=== PATIENT | male | born 1950 | race Caucasian/White ===

== ENCOUNTER 2020-06-23 11:40 | Emergency (ER) | payer OTHER ==
[2020-06-23] MEDS ORDERED: Acetaminophen/HYDROcodone 325-5 MG Tab PO ONE (12:26)
--- NOTE | 2020-06-23 12:29 | EDM.PDOC ---
ED HPI GENERAL MEDICAL PROBLEM - General Chief Complaint: Back Pain or Injury Stated Complaint: RIB PAIN/PAIN WITH BREATHING Time Seen by Provider: 06/23/20 11:51 Source of Information: Reports: Patient, RN Notes Reviewed - History of Present Illness INITIAL COMMENTS - FREE TEXT/NARRATIVE: 69 yr old male fell on a log with injury to R lateral chest wall 2 days ago. This has been very painful. Hurts to breath, hurts to move. No other pain or other apparent injury. Hard to sleep at night. Has been sleeping sitting up in a chair. ribs Pain Score (Numeric/FACES): 10 - Related Data Allergies Allergy/AdvReac Type Severity Reaction Status Date / Time procaine [From Novocain] Allergy Severe Cannot Verified 06/23/20 11:53 Remember Home Meds: Home Meds Betamethasone/Propylene Glyc [Diprolene 0.05%] 1 applic TOP BID 06/23/20 [History] Cholecalciferol (Vitamin D3) [Vitamin D3] 1 tab PO DAILY 06/23/20 [History] Gabapentin [Neurontin] 200 mg PO BEDTIME 06/23/20 [History] Hydrocodone/Acetaminophen [[place] 5-325 Tablet] 1 each PO Q6HR PRN #20 tablet 06/23/20 [Rx] Triamcinolone Acetonide [Kenalog] 1 applic TOP BID 06/23/20 [History] lisinopriL [Lisinopril] 40 mg PO DAILY 06/23/20 [History] Past Medical History Cardiovascular History: Reports: Hypertension Social & Family History - Tobacco Use Tobacco Use Status *Q: Current Every Day Tobacco User Years of Tobacco use: 40 Packs/Tins Daily: 2 - Caffeine Use Caffeine Use: Reports: None - Recreational Drug Use Recreational Drug Use: No ED ROS GENERAL - Review of Systems Review Of Systems: See Below Constitutional: Reports: No Symptoms HEENT: Reports: No Symptoms Respiratory: Reports: Pleuritic Chest Pain. Denies: Cough Cardiovascular: Reports: Chest Pain GI/Abdominal: Denies: Nausea, Vomiting Musculoskeletal: Denies: Neck Pain, Shoulder Pain, Back Pain Skin: Reports: No Symptoms Neurological: Reports: No Symptoms ED EXAM, NEURO - Physical Exam Exam: See Below General Appearance: Alert, Mild Distress Ears: Normal External Exam Head Exam: Atraumatic Neck: Supple, Non-Tender Respiratory/Chest: No Respiratory Distress, Normal Breath Sounds, Other (tender R lateral chest, rib deformity palpable R lateral chest) Cardiovascular: Regular Rate, Rhythm GI/Abdominal: Soft, Non-Tender. No: Guarding, Rebound Neurological: Alert, No Motor/Sensory Deficits Back Exam: No: CVA Tenderness (L), CVA Tenderness (R) Extremities: Normal Inspection, Normal Range of Motion Skin Exam: Warm, Dry, Normal Color Course - Vital Signs Last Recorded V/S: Last Vital Signs Temp 98.4 F 06/23/20 11:48 Pulse 67 06/23/20 11:48 Resp 18 06/23/20 11:48 BP 182/80 H 06/23/20 11:48 Pulse Ox 97 06/23/20 11:48 - Orders/Labs/Meds Meds: Medications Discontinued Medications Generic Name Dose Route Start Last Admin Trade Name Freq PRN Reason Stop Dose Admin Hydrocodone Bitart/Acetaminophen 1 tab 06/23/20 12:26 06/23/20 12:50 [place] 325-5 Mg PO 06/23/20 12:27 1 tab ONETIME ONE Administration - Re-Assessments/Exams Free Text/Narrative Re-Assessment/Exam: 06/23/20 14:32 Fx of R 10th rib, possible fx R 7th rib. Departure - Departure Time of Disposition: 14:16 Disposition: Home, Self-Care 01 Condition: Fair Clinical Impression: Fall Qualifiers: Encounter type: initial encounter Qualified Code(s): W19.XXXA - Unspecified fall, initial encounter Rib fracture Qualifiers: Encounter type: initial encounter Rib fracture type: single rib Fracture type: closed Laterality: right Qualified Code(s): S22.31XA - Fracture of one rib, right side, initial encounter for closed fracture - Discharge Information Prescriptions: Hydrocodone/Acetaminophen [[place] 5-325 Tablet] 1 each PO Q6HR PRN #20 tablet PRN Reason: Pain Instructions: Rib Fracture, [id number] Referrals: Lazara Can MD [Primary Care Provider] - Forms: ED Department Discharge Additional Instructions: Rest, move slowly and carefully. Hydrocodone 5/325 q 6 to 8 hr as needed for severe pain or 1/2 tablet hydrocodone along with 500 mg tylenol for moderated pain. Prescription has been sent electronically to [facility]. No heavy lifting. Follow up clinic as needed. Return to ED as needed if symptoms worsening in any way. Sepsis Event Note (ED) - Evaluation Sepsis Screening Result: No Definite Risk
== END 2020-06-23 14:42 | disposition home or self-care (01) ==
LOC: JD.ED 11:40
DX: S22.31XA Fracture of one rib, right side, initial encounter for closed fracture (principal); I10 Essential (primary) hypertension; F17.210 Nicotine dependence, cigarettes, uncomplicated; Z88.4 Allergy status to anesthetic agent; Z79.899 Other long term (current) drug therapy; W18.30XA Fall on same level, unspecified, initial encounter
CPT/HCPCS: 71101; 99283; A9270

== ENCOUNTER 2021-04-16 10:54 | Emergency (ER) | payer OTHER ==
[2021-04-16] MEDS ORDERED: Sodium Chloride 0.9% 10 ML Syringe FLUSH PRN (11:21)
[2021-04-16] MEDS ORDERED: Sodium Chloride 0.9% 1,000 ML IV ONE ×2 (11:22→13:22)
[2021-04-16] MEDS ORDERED: Orphenadrine 100 MG Tab.ER PO ONE (11:22)
[2021-04-16] MEDS ORDERED: Ondansetron 4 MG/2 ML SDV IVPUSH ONE (11:22)
--- NOTE | 2021-04-16 11:28 | EDM.PDOC ---
ED HPI GENERAL MEDICAL PROBLEM - General Chief Complaint: Abdominal Pain Stated Complaint: ABDOMINAL PAIN Time Seen by Provider: 04/16/21 11:11 Source of Information: Reports: Patient, RN Notes Reviewed History Limitations: Reports: No Limitations - History of Present Illness INITIAL COMMENTS - FREE TEXT/NARRATIVE: Patient is a 70-year-old male who presents to the ER for the evaluation of his chest and abdomen pain. This is been going on since last week, he was seen at the [facility] on Friday, and they did acupuncture at that time, and he states that this did not seem to help. He has not taken any sort of Tylenol ibuprofen for the pain. He is exquisitely tender over the left shoulder blade region, and does jump when even palpated very lightly. Patient does have a friend present in the room, and she states that he is not been out of bed much at all all weekend, he is not really been eating or drinking much, and he did not urinate Friday, or Friday morning, but did finally get some urine out Friday afternoon. He has not had any fevers, but his having nausea, and chills, and some diarrhea. He has had no vomiting. Patient notes that he does have chronic back pain. States that the pain is constant, and seems to radiate down into his abdomen. Does state that movement seems to make it worse, and when he just lays around seems to make it better. Left Abdomen Pain Score (Numeric/FACES): 10 - Related Data Allergies Allergy/AdvReac Type Severity Reaction Status Date / Time procaine [From Novocain] Allergy Severe Cannot Verified 04/16/21 11:08 Remember Home Meds: Home Meds Cholecalciferol (Vitamin D3) [Vitamin D3] 1 tab PO DAILY 06/23/20 [History] Gabapentin [Neurontin] 200 mg PO BEDTIME 06/23/20 [History] Triamcinolone Acetonide [Kenalog] 1 applic TOP BID 06/23/20 [History] lisinopriL [Lisinopril] 40 mg PO DAILY 06/23/20 [History] Hydrocodone/Acetaminophen [HYDROcodone-Acetaminophen 5-325 MG] 1 each PO Q6H PRN #12 tablet 04/16/21 [Rx] Orphenadrine [Norflex] 100 mg PO BID PRN #20 tab 04/16/21 [Rx] Sucralfate 1 gm PO TID #21 tablet 04/16/21 [Rx] Past Medical History Cardiovascular History: Reports: Hypertension Musculoskeletal History: Reports: Back Pain, Chronic - Past Surgical History Neurological Surgical History: Reports: Lumbar Spine Social & Family History - Tobacco Use Tobacco Use Status *Q: Current Every Day Tobacco User Years of Tobacco use: 40 Packs/Tins Daily: 1 - Caffeine Use Caffeine Use: Reports: Soda - Recreational Drug Use Recreational Drug Use: No ED ROS GENERAL - Review of Systems Review Of Systems: Comprehensive ROS is negative, except as noted in HPI. ED EXAM, GENERAL - Physical Exam Exam: See Below Exam Limited By: No Limitations General Appearance: Alert, WD/WN, No Apparent Distress Head: Atraumatic, Normocephalic Respiratory/Chest: No Respiratory Distress, Lungs Clear, Normal Breath Sounds, No Accessory Muscle Use, Chest Non-Tender Cardiovascular: Normal Peripheral Pulses, Regular Rate, Rhythm, No Edema Peripheral Pulses: 2+: Radial (L), Radial (R) GI/Abdominal: Normal Bowel Sounds, Soft, Non-Tender, No Distention, No Mass Back Exam: Normal Inspection, Muscle Spasm (there is an area of exquisite tenderness to left medial shoulder blade; that seems to run the entire length of the shoulderblade). No: CVA Tenderness (L), CVA Tenderness (R) Extremities: Normal Inspection, Normal Capillary Refill Neurological: Alert, Oriented, Normal Cognition, No Motor/Sensory Deficits Psychiatric: Normal Affect, Normal Mood Skin Exam: Warm, Dry, Intact, Normal Color, No Rash #1 Interpretation EKG Date: 04/16/21 Time: 11:41 Rhythm: NSR Rate (Beats/Min): 67 Happy: Normal P-Wave: Present QRS: Normal ST-T: Normal QT: Normal EKG Interpretation Comments: No obvious ischemia or acute ST changes noted, reviewed by myself and Dr. Bajwa. There is some spiked T waves in V3 alone noted by Dr. Bajwa. Course - Vital Signs Last Recorded V/S: Last Vital Signs Temp 96.8 F L 04/16/21 11:05 Pulse 73 04/16/21 11:05 Resp 16 04/16/21 11:05 BP 196/135 H 04/16/21 11:05 Pulse Ox 98 04/16/21 11:05 - Orders/Labs/Meds Orders: Active Orders 24 hr Category Date Time Status EKG Documentation Completion [RC] STAT Care 04/16/21 11:21 Ordered Peripheral IV Care [RC] . DIRECTED Care 04/16/21 11:21 Ordered Alum Hydrox/Mag Hydrox/Simeth [Mag-Al Plus] 30 ml Med 04/16/21 16:33 Ordered Lidocaine 2% [Xylocaine 2% Viscous] 15 ml PO ONETIME Sodium Chloride 0.9% [Normal Saline] 1,000 ml Med 04/16/21 13:22 Active IV ONETIME Sodium Chloride 0.9% [Saline Flush] Med 04/16/21 11:21 Active 10 ml FLUSH ASDIRECTED PRN Peripheral IV Insertion Adult [OM.PC] Stat Oth 04/16/21 11:21 Ordered Medication Orders Sodium Chloride (Normal Saline) 1,000 mls @ 125 mls/hr IV ONETIME ONE Stop: 04/16/21 21:21 Last Admin: 04/16/21 14:15 Dose: 125 mls/hr Documented by: CHARAN Sodium Chloride (Sodium Chloride 0.9% 10 Ml Syringe) 10 ml FLUSH ASDIRECTED PRN PRN Reason: Keep Vein Open Last Admin: 04/16/21 11:43 Dose: 10 ml Documented by: HEIDI Labs: Laboratory Tests 04/16/21 04/16/21 04/16/21 Range/Units 11:30 11:30 11:30 WBC 3.26 L (4.23-9.07) K/mm3 RBC 4.31 L (4.63-6.08) M/mm3 Hgb 15.0 (13.7-17.5) gm/dl Hct 41.1 (40.1-51.0) % MCV 95.4 H (79.0-92.2) fl MCH 34.8 H (25.7-32.2) pg MCHC 36.5 H (32.2-35.5) g/dl RDW Std Deviation 38.8 (35.1-43.9) fL Plt Count 42 L (163-337) K/mm3 MPV 11.4 (9.4-12.3) fl Neut % (Auto) 64.4 (34.0-67.9) % Lymph % (Auto) 13.5 L (21.8-53.1) % [place] % (Auto) 20.9 H (5.3-12.2) % Eos % (Auto) 0.6 L (0.8-7.0) Baso % (Auto) 0.3 (0.1-1.2) % Neut # (Auto) 2.10 (1.78-5.38) K/mm3 Lymph # (Auto) 0.44 L (1.32-3.57) K/mm3 [place] # (Auto) 0.68 (0.30-0.82) K/mm3 Eos # (Auto) 0.02 L (0.04-0.54) K/mm3 Baso # (Auto) 0.01 (0.01-0.08) K/mm3 Manual Slide Review Abnormal smear PT 14.2 H (9.7-12.0) SECONDS INR 1.33 APTT 25.3 (21.7-31.4) SECONDS Sodium 131 L (136-145) mEq/L Potassium 3.5 (3.5-5.1) mEq/L Chloride 91 L (98-107) mEq/L Carbon Dioxide 29 (21-32) mEq/L Anion Gap 14.5 (5-15) BUN 17 (7-18) mg/dL Creatinine 0.8 (0.7-1.3) mg/dL Est Cr Clr Drug Dosing 63.34 mL/min Estimated GFR (MDRD) > 60 (>60) mL/min BUN/Creatinine Ratio 21.3 H (14-18) Glucose 103 H (70-99) mg/dL Calcium 9.4 (8.5-10.1) mg/dL Magnesium 1.9 (1.8-2.4) mg/dL Total Bilirubin 2.1 H (0.2-1.0) mg/dL AST 81 H (15-37) U/L ALT 69 H (16-63) U/L Alkaline Phosphatase 83 (46-116) U/L Troponin I 0.054 (0.00-0.056) ng/mL NT-Pro-B Natriuret Pep (0-125) pg/mL Total Protein 7.0 (6.4-8.2) g/dl Albumin 4.1 (3.4-5.0) g/dl Globulin 2.9 gm/dL Albumin/Globulin Ratio 1.4 (1-2) Lipase (73-393) U/L Urine Color (Yellow) Urine Appearance (Clear) Urine pH (5.0-8.0) Ur Specific [place] (1.005-1.030) Urine Protein (Negative) Urine Glucose (UA) (Negative) Urine Ketones (Negative) Urine Occult Blood (Negative) Urine Nitrite (Negative) Urine Bilirubin (Negative) Urine Urobilinogen (0.2-1.0) Ur Leukocyte Esterase (Negative) Urine RBC (0-5) /hpf Urine WBC (0-5) /hpf Ur Squamous Epith Cells (0-5) /hpf Amorphous Sediment (NOT SEEN) /hpf Urine Bacteria (FEW) /hpf Urine Mucus (FEW) /hpf 04/16/21 04/16/21 04/16/21 Range/Units 11:30 11:30 14:10 WBC (4.23-9.07) K/mm3 RBC (4.63-6.08) M/mm3 Hgb (13.7-17.5) gm/dl Hct (40.1-51.0) % MCV (79.0-92.2) fl MCH (25.7-32.2) pg MCHC (32.2-35.5) g/dl RDW Std Deviation (35.1-43.9) fL Plt Count (163-337) K/mm3 MPV (9.4-12.3) fl Neut % (Auto) (34.0-67.9) % Lymph % (Auto) (21.8-53.1) % [place] % (Auto) (5.3-12.2) % Eos % (Auto) (0.8-7.0) Baso % (Auto) (0.1-1.2) % Neut # (Auto) (1.78-5.38) K/mm3 Lymph # (Auto) (1.32-3.57) K/mm3 [place] # (Auto) (0.30-0.82) K/mm3 Eos # (Auto) (0.04-0.54) K/mm3 Baso # (Auto) (0.01-0.08) K/mm3 Manual Slide Review PT (9.7-12.0) SECONDS INR APTT (21.7-31.4) SECONDS Sodium (136-145) mEq/L Potassium (3.5-5.1) mEq/L Chloride (98-107) mEq/L Carbon Dioxide (21-32) mEq/L Anion Gap (5-15) BUN (7-18) mg/dL Creatinine (0.7-1.3) mg/dL Est Cr Clr Drug Dosing mL/min Estimated GFR (MDRD) (>60) mL/min BUN/Creatinine Ratio (14-18) Glucose (70-99) mg/dL Calcium (8.5-10.1) mg/dL Magnesium (1.8-2.4) mg/dL Total Bilirubin (0.2-1.0) mg/dL AST (15-37) U/L ALT (16-63) U/L Alkaline Phosphatase (46-116) U/L Troponin I (0.00-0.056) ng/mL NT-Pro-B Natriuret Pep 523 H (0-125) pg/mL Total Protein (6.4-8.2) g/dl Albumin (3.4-5.0) g/dl Globulin gm/dL Albumin/Globulin Ratio (1-2) Lipase 77 (73-393) U/L Urine Color Dark yellow (Yellow) Urine Appearance Clear (Clear) Urine pH 6.0 (5.0-8.0) Ur Specific [place] 1.025 (1.005-1.030) Urine Protein 2+ H (Negative) Urine Glucose (UA) Negative (Negative) Urine Ketones 1+ H (Negative) Urine Occult Blood 1+ H (Negative) Urine Nitrite Negative (Negative) Urine Bilirubin 2+ H (Negative) Urine Urobilinogen 0.2 (0.2-1.0) Ur Leukocyte Esterase Negative (Negative) Urine RBC 5-10 H (0-5) /hpf Urine WBC 0-5 (0-5) /hpf Ur Squamous Epith Cells 0-5 (0-5) /hpf Amorphous Sediment Few H (NOT SEEN) /hpf Urine Bacteria Few (FEW) /hpf Urine Mucus Few (FEW) /hpf 04/16/21 Range/Units 14:31 WBC (4.23-9.07) K/mm3 RBC (4.63-6.08) M/mm3 Hgb (13.7-17.5) gm/dl Hct (40.1-51.0) % MCV (79.0-92.2) fl MCH (25.7-32.2) pg MCHC (32.2-35.5) g/dl RDW Std Deviation (35.1-43.9) fL Plt Count (163-337) K/mm3 MPV (9.4-12.3) fl Neut % (Auto) (34.0-67.9) % Lymph % (Auto) (21.8-53.1) % [place] % (Auto) (5.3-12.2) % Eos % (Auto) (0.8-7.0) Baso % (Auto) (0.1-1.2) % Neut # (Auto) (1.78-5.38) K/mm3 Lymph # (Auto) (1.32-3.57) K/mm3 [place] # (Auto) (0.30-0.82) K/mm3 Eos # (Auto) (0.04-0.54) K/mm3 Baso # (Auto) (0.01-0.08) K/mm3 Manual Slide Review PT (9.7-12.0) SECONDS INR APTT (21.7-31.4) SECONDS Sodium (136-145) mEq/L Potassium (3.5-5.1) mEq/L Chloride (98-107) mEq/L Carbon Dioxide (21-32) mEq/L Anion Gap (5-15) BUN (7-18) mg/dL Creatinine (0.7-1.3) mg/dL Est Cr Clr Drug Dosing mL/min Estimated GFR (MDRD) (>60) mL/min BUN/Creatinine Ratio (14-18) Glucose (70-99) mg/dL Calcium (8.5-10.1) mg/dL Magnesium (1.8-2.4) mg/dL Total Bilirubin (0.2-1.0) mg/dL AST (15-37) U/L ALT (16-63) U/L Alkaline Phosphatase (46-116) U/L Troponin I 0.054 (0.00-0.056) ng/mL NT-Pro-B Natriuret Pep (0-125) pg/mL Total Protein (6.4-8.2) g/dl Albumin (3.4-5.0) g/dl Globulin gm/dL Albumin/Globulin Ratio (1-2) Lipase (73-393) U/L Urine Color (Yellow) Urine Appearance (Clear) Urine pH (5.0-8.0) Ur Specific [place] (1.005-1.030) Urine Protein (Negative) Urine Glucose (UA) (Negative) Urine Ketones (Negative) Urine Occult Blood (Negative) Urine Nitrite (Negative) Urine Bilirubin (Negative) Urine Urobilinogen (0.2-1.0) Ur Leukocyte Esterase (Negative) Urine RBC (0-5) /hpf Urine WBC (0-5) /hpf Ur Squamous Epith Cells (0-5) /hpf Amorphous Sediment (NOT SEEN) /hpf Urine Bacteria (FEW) /hpf Urine Mucus (FEW) /hpf Meds: Medications Generic Name Dose Route Start Last Admin Trade Name Freq PRN Reason Stop Dose Admin Sodium Chloride 1,000 mls @ 125 mls/hr 04/16/21 13:22 04/16/21 14:15 Normal Saline IV 04/16/21 21:21 125 mls/hr ONETIME ONE Administration Sodium Chloride 10 ml 04/16/21 11:21 04/16/21 11:43 Sodium Chloride 0.9% 10 Ml Syringe FLUSH 10 ml ASDIRECTED PRN Administration Keep Vein Open Discontinued Medications Generic Name Dose Route Start Last Admin Trade Name Freq PRN Reason Stop Dose Admin Hydromorphone HCl 0.5 mg 04/16/21 13:22 04/16/21 14:12 Hydromorphone 0.5 Mg/0.5 Ml Syringe IVPUSH 04/16/21 13:23 0.5 mg ONETIME ONE Administration Sodium Chloride 1,000 mls @ 999 mls/hr 04/16/21 11:22 04/16/21 11:43 Normal Saline IV 04/16/21 12:22 999 mls/hr ONETIME ONE Administration Ondansetron HCl 4 mg 04/16/21 11:22 04/16/21 11:43 Ondansetron 4 Mg/2 Ml Sdv IVPUSH 04/16/21 11:23 4 mg ONETIME ONE Administration Orphenadrine Citrate 100 mg 04/16/21 11:22 04/16/21 11:43 Orphenadrine 100 Mg Tab.Er PO 04/16/21 11:23 100 mg ONETIME ONE Administration - Re-Assessments/Exams Free Text/Narrative Re-Assessment/Exam: 04/16/21 11:28 Patient presents to the ER for the evaluation of his chest/back pain, and abdominal issues. We will go ahead and get an IV started, given fluids, nausea meds, Norflex for suspected muscle spasm in his back and get some baseline labs along with a chest x-ray for further evaluation. 04/16/21 11:55 Patient's x-ray demonstrates suboptimal findings due to dark technique by the tech. No gross abnormality was seen on this exam however. There were some chr onic rotator cuff injuries appreciated by Dr. Gore. 04/16/21 13:24 Labs have resulted, his white count is slightly decreased at 3.26, but no other acute changes on the CBC, metabolic panel demonstrates a slightly low sodium at 131, troponin level is 0.054, this is within normal limits however it is at the high end of normal limits, so a 3-hour troponin will be obtained at 2:30 PM for further management to make sure that is indeed staying the same and not increasing. BNP is elevated at 523, patient's total bilirubin is also elevated at 2.1. I do believe the patient has some slight dehydration/starvation issues causing some of these abnormalities. I will go ahead and start another bag of fluids, at a lower rate, we will give him something for pain management as he states the pain in his shoulder and the left lower chest/left upper abdomen is still pretty intense. He is not complaining of any chest pain at this time. Patient was made aware of this. We are still awaiting urinalysis at this time. 04/16/21 15:08 Repeat troponin is still pending, urinalysis was impressive for 1+ occult blood with 5-10 RBCs per high-power field. With his ongoing left-sided flank pain and now hematuria, we will go ahead and do an abdomen pelvis CT without contrast for evaluation of a possible kidney stone. 04/16/21 16:12 Troponin level stayed the same at 0.054. CT demonstrated no sign of any sort of kidney stones, bladder wall shows thickening, likely represents change from bladder outlet obstruction, which would suggest that he has some prostatic hypertrophy. Patient is not on any medication for this he [facility] also I do believe that a urology referral be warranted due to the blood in the urine. Departure - Departure Time of Disposition: 16:14 Disposition: Home, Self-Care 01 Condition: Good Clinical Impression: Muscle spasm of back Left shoulder pain Qualifiers: Chronicity: acute Qualified Code(s): M25.512 - Pain in left shoulder Gastritis Qualifiers: Gastritis type: unspecified gastritis Chronicity: acute Gastritis bleeding: without bleeding Qualified Code(s): K29.00 - Acute gastritis without bleeding - Discharge Information *PRESCRIPTION DRUG MONITORING PROGRAM REVIEWED*: Yes *COPY OF PRESCRIPTION DRUG MONITORING REPORT IN PATIENT ERICK: No Prescriptions: Hydrocodone/Acetaminophen [HYDROcodone-Acetaminophen 5-325 MG] 1 each PO Q6H PRN #12 tablet PRN Reason: Pain Orphenadrine [Norflex] 100 mg PO BID PRN #20 tab PRN Reason: Spasms Sucralfate 1 gm PO TID #21 tablet Instructions: Muscle Cramps and Spasms, [id number], Musculoskeletal Pain Referrals: Lazara Can MD [Primary Care Provider] - Forms: ED Department Discharge Additional Instructions: You were evaluated in the ER today for your back/left shoulder pain, and abdominal discomfort. Thorough laboratory evaluation, chest x-ray, and abdomen pelvis CT demonstrate that you are suffering most likely from chronic rotator cuff issues in your shoulders, which could be a portion of your pain in your arm. It is not likely that you have some muscle spasm in your left upper back/shoulder blade area, as there was an area that was quite tender. You have been started on muscle relaxers for this, Norflex 1 tablet 2 times a day as needed for ongoing spasm/pain relief. You were given a prescription for a strong pain medication, hydrocodone/acetaminophen 5/325 mg, please take 1 tab every 6 hours as needed for pain not relieved by Tylenol or ibuprofen alone. Please note this medication does contain Tylenol in it, so do not take more than 4000 mg in a 24-hour time span. These medications can be addictive, so please take as few as possible to achieve adequate pain control. These meds can also be quite constipating, recommend that you increase your oral fluid intake and take a stool softener like MiraLAX while taking these medications. Do not drive while taking this medication. CT demonstrated no sign of kidney stones, but does demonstrate some slight bladder outlet obstruction, which represents possibility of an enlarged prostate. Please discuss being started on a medication to shrink your prostate from your regular care provider Dr. Can at the [facility]. also it would be warranted to have her do a urological referral for further work-up, due to the blood found in your urine sample today. No other acute intra-abdominal abnormality was appreciated. You were also given a prescription for sucralfate, you will need to take 1 tablet 1 hour prior to meals, to help relieve symptoms of gastritis. As you stated you are not already doing so, I would like you to start a medication called omeprazole or Prilosec [id number] you may take 1 tablet per venue attendant's instructions. This can be purchased at any retail pharmacy. Please note that this medication can take up to 72 hours to start providing good effect. Please keep yourself well hydrated with fluids over the next few days, and eat fewer smaller meals to keep your nutrition up and you should be feeling better in a few days time. Sepsis Event Note (ED) - Evaluation Sepsis Screening Result: No Definite Risk - Focused Exam Vital Signs: Vital Signs Temp Pulse Resp BP Pulse Ox 04/16/21 11:05 96.8 F L 73 16 196/135 H 98 - My Orders Last 24 Hours: My Active Orders 04/16/21 11:21 EKG Documentation Completion [RC] STAT Peripheral IV Care [RC] . DIRECTED Sodium Chloride 0.9% [Saline Flush] 10 ml FLUSH ASDIRECTED PRN Peripheral IV Insertion Adult [OM.PC] Stat 04/16/21 13:22 Sodium Chloride 0.9% [Normal Saline] 1,000 ml IV ONETIME 04/16/21 16:33 Alum Hydrox/Mag Hydrox/Simeth [Mag-Al Plus] 30 ml Lidocaine 2% [Xylocaine 2% V iscous] 15 ml PO ONETIME - Assessment/Plan Last 24 Hours: My Active Orders 04/16/21 11:21 EKG Documentation Completion [RC] STAT Peripheral IV Care [RC] . DIRECTED Sodium Chloride 0.9% [Saline Flush] 10 ml FLUSH ASDIRECTED PRN Peripheral IV Insertion Adult [OM.PC] Stat 04/16/21 13:22 Sodium Chloride 0.9% [Normal Saline] 1,000 ml IV ONETIME 04/16/21 16:33 Alum Hydrox/Mag Hydrox/Simeth [Mag-Al Plus] 30 ml Lidocaine 2% [Xylocaine 2% Viscous] 15 ml PO ONETIME
--- NOTE | 2021-04-16 11:52 | CR ---
Chest: Portable view of the chest was obtained. Comparison: Prior chest x-ray of 08/11/12. Technique is extremely dark. No gross abnormality is seen on this suboptimal exam. Heart size is normal. Tortuous thoracic aorta is seen. Vascular calcification is noted. Findings within both shoulders suspicious for chronic rotator cuff tears. Impression: 1. Suboptimal chest x-ray due to dark technique. 2. Other findings as noted above. Nothing acute is grossly seen. Diagnostic code #2
[2021-04-16] MEDS ORDERED: HYDROmorphone 0.5 MG/0.5 ML Syringe IVPUSH ONE (13:22)
--- NOTE | 2021-04-16 16:12 | CT ---
CT abdomen and pelvis Technique: Multiple axial sections were obtained from above the dome of the diaphragm inferiorly to the pubic symphysis. Intravenous and oral contrast were not utilized. Study has been performed as a ureteral stone protocol. Comparison: No prior CT abdomen or pelvis studies available. Findings: Granuloma is noted within the right lung base. Scattered emphysematous change is present. Partially visualized coronary artery calcification is seen. There is evidence of partially visualized axillary bifemoral graft system. Liver contains no focal parenchymal abnormality. Gallbladder shows no calcified gallstones. Spleen size is normal. Adrenal glands show no nodule. Kidneys shows no abnormal calcifications. No ureteral dilatation or ureteral stone is seen. Pancreas appears within normal limits. Abdominal aorta shows prominent atherosclerotic calcification which continues into the branch vessels. Atherosclerotic calcification is noted within both iliac vessels as well. No retroperitoneal adenopathy or mesenteric abnormalities are seen. No pelvic mass or adenopathy is seen. Bladder is thick-walled which most likely represents change from bladder outlet obstruction. Bowel gas pattern appears normal. Appendix is not definitely visualized. Bone window settings were reviewed which show scattered degenerative change within the spine as well as osteopenia and scoliosis. Mild degenerative change is noted within the sacroiliac joints. Impression: 1. No renal calculi, ureteral dilatation or ureteral stone is seen. 2. Bladder wall thickening most likely relating to change from bladder outlet obstruction. 3. Axillary bifemoral graft is partially visualized. 4. Other findings as noted above which are nonacute. Diagnostic code #2
[2021-04-16] MEDS ORDERED: Alum Hydrox/Mag Hydrox/Simeth 30 ML, Lidocaine 2% 15 ML PO ONE ×2 (16:33)
== END 2021-04-16 17:10 | disposition home or self-care (01) ==
LOC: JD.ED 10:54
DX: K29.00 Acute gastritis without bleeding (principal); M25.512 Pain in left shoulder; M62.830 Muscle spasm of back; I10 Essential (primary) hypertension; Z72.0 Tobacco use; Z88.8 Allergy status to other drugs, medicaments and biological substances; Z79.899 Other long term (current) drug therapy
CPT/HCPCS: 36415; 71045; 74176; 80053; 81001; 83690; 83735; 83880; 84484; 85025; 85610; 85730; 93005; 96374; 96375; 99285; A9270; J1170; J2405; J7030; 93010; 99284

== ENCOUNTER 2021-04-24 11:51 | Emergency (ER) | payer OTHER ==
[2021-04-24] MEDS ORDERED: Sodium Chloride 0.9% 1,000 ML IV SCH (12:30)
[2021-04-24] MEDS ORDERED: Sodium Chloride 0.9% 10 ML Syringe FLUSH PRN (12:30)
[2021-04-24] MEDS ORDERED: Sodium Chloride 0.9% 10 ML Syringe FLUSH ONE ×2 (12:36→12:50)
[2021-04-24] MEDS ORDERED: Iopamidol 755 Mg/ML 100 ML Bottle IVPUSH ONE (12:36)
[2021-04-24] MEDS ORDERED: Sodium Chloride 0.9% 100 ML IV SCH (12:45)
--- NOTE | 2021-04-24 13:24 | CT ---
CT cervical spine Technique: Multiple axial sections were obtained from above C1 inferiorly through the mid T3 level. Reconstructed coronal and sagittal images were obtained. Comparison: No prior cervical spine imaging is available. Findings: Degenerative change is seen between the dens and anterior arch of C1. Mild disc space narrowing is noted at C3-4, C4-5 and C5-6. There are mild anterior wedge deformities within T1 as well as T3 which most likely are old. Mild scattered posterior spurring is seen. Mild scattered degenerative apophyseal change is noted. Mild left-sided neural foraminal stenosis is noted at C5-6. Other neural foramina are felt to be fairly well patent. No bony central canal stenosis is seen. No acute fracture or abnormal subluxation is seen. Diffuse vascular calcification is seen. Slight mucosal thickening is seen within the right maxillary sinus. Impression: 1. Mild diffuse degenerative change within the cervical spine. 2. Vascular calcification is seen. Other findings are believed to be incidental. 3. Nothing acute is otherwise seen. Diagnostic code #2
--- NOTE | 2021-04-24 14:25 | EDM.PDOC ---
ED HPI GENERAL MEDICAL PROBLEM - General Chief Complaint: Upper Extremity Injury/Pain Stated Complaint: BACK AND SHOULDER PAIN NOT GETTING BETTER Time Seen by Provider: 04/24/21 12:20 Source of Information: Reports: Patient, Family History Limitations: Reports: No Limitations - History of Present Illness INITIAL COMMENTS - FREE TEXT/NARRATIVE: The patient presents with left upper back and shoulder pain. This has been going no for over a week. He was hauling some equipment and it needed to be fixed last week. He did not injure his back at all. He did not fall, lift, or twists. He developed pain to his left upper back and shoulder. He was seen here on 04/16/21. He had an extensive work up done to look at his heart and lungs. All of that looked good. He was given hydrocodone and norflex. He says the pain has gotten worse. He has not taken the norflex. He read that can make prostate issues worse. He has only taken a few hydrocodone. He has no numbness, weakness, bowel or bladder problems. He has no fever, chills, cough, chest pain, shortness of breath, abdominal pain, nausea or vomiting. Onset: Gradual Duration: Week(s): Location: Reports: Back, Upper Extremity, Left ([id number]) Quality: Reports: Sharp Severity: Moderate Improves with: Reports: Immobilization Worsens with: Reports: Movement Context: Denies: Trauma Associated Symptoms: Reports: No Other Symptoms Left Back Pain Score (Numeric/FACES): 10 - Related Data Allergies Allergy/AdvReac Type Severity Reaction Status Date / Time procaine [From Novocain] Allergy Unknown Cannot Verified 04/24/21 12:03 Remember Home Meds: Home Meds Cholecalciferol (Vitamin D3) [Vitamin D3] 1 tab PO DAILY 06/23/20 [History] Gabapentin [Neurontin] 200 mg PO BEDTIME PRN 06/23/20 [History] Triamcinolone Acetonide [Kenalog] 1 applic TOP BID PRN 06/23/20 [History] lisinopriL [Lisinopril] 40 mg PO DAILY 06/23/20 [History] Hydrocodone/Acetaminophen [HYDROcodone-Acetaminophen 5-325 MG] 1 each PO Q6H PRN #12 tablet 04/16/21 [Rx] Orphenadrine [Norflex] 100 mg PO BID PRN #20 tab 04/16/21 [Rx] Sucralfate 1 gm PO TID #21 tablet 04/16/21 [Rx] Hydrocodone/Acetaminophen [Hydrocodone-Acetamin 5-325 mg] 1 - 2 each PO Q6H PRN #15 tablet 04/24/21 [Rx] predniSONE [Prednisone] 40 mg PO DAILY #10 tablet 04/24/21 [Rx] Past Medical History Cardiovascular History: Reports: Hypertension Musculoskeletal History: Reports: Back Pain, Chronic - Past Surgical History Neurological Surgical History: Reports: Lumbar Spine Social & Family History - Tobacco Use Tobacco Use Status *Q: Current Every Day Tobacco User Years of Tobacco use: 50 Packs/Tins Daily: 1 - Caffeine Use Caffeine Use: Reports: Soda - Recreational Drug Use Recreational Drug Use: No Review of Systems - Review of Systems Review Of Systems: See Below Constitutional: Reports: No Symptoms Eyes: Reports: No Symptoms Ears: Reports: No Symptoms Nose: Reports: No Symptoms Mouth/Throat: Reports: No Symptoms Respiratory: Reports: No Symptoms Cardiovascular: Reports: No Symptoms GI/Abdominal: Reports: No Symptoms Genitourinary: Reports: No Symptoms Musculoskeletal: Reports: Shoulder Pain (left), Back Pain Neurological: Reports: No Symptoms ED EXAM, GENERAL - Physical Exam Exam: See Below Exam Limited By: No Limitations General Appearance: Alert, No Apparent Distress Ears: Normal External Exam Nose: Normal Inspection Head: Atraumatic, Normocephalic Neck: Normal Inspection, Supple, Non-Tender Respiratory/Chest: No Respiratory Distress, Lungs Clear, Normal Breath Sounds Cardiovascular: Regular Rate, Rhythm, No Edema, No Murmur GI/Abdominal: Soft, Non-Tender, No Organomegaly, No Mass Back Exam: Normal Inspection Extremities: Normal Inspection Neurological: Alert, Oriented, No Motor/Sensory Deficits #1 Interpretation EKG Date: 04/24/21 Time: 13:01 Rhythm: NSR Rate (Beats/Min): 63 [place]: Normal P-Wave: Present QRS: Normal ST-T: Normal QT: Normal Course - Vital Signs Last Recorded V/S: Last Vital Signs Temp 97 F 04/24/21 12:05 Pulse 66 04/24/21 12:05 Resp 16 04/24/21 12:05 BP 214/104 H 04/24/21 12:05 Pulse Ox 97 04/24/21 12:05 - Orders/Labs/Meds Orders: Active Orders 24 hr Category Date Time Status Cardiac Monitoring [RC] . DIRECTED Care 04/24/21 12:31 Active EKG Documentation Completion [RC] STAT Care 04/24/21 12:31 Active Peripheral IV Care [RC] . DIRECTED Care 04/24/21 12:31 Active Ang Chest [CT] Stat Exams 04/24/21 12:31 Taken CORONAVIRUS COVID-19 LUCRETIA [MOLEC] Stat Lab 04/24/21 13:36 Ordered Sodium Chloride 0.9% [Normal Saline] 1,000 ml Med 04/24/21 12:30 Active IV ASDIRECTED Sodium Chloride 0.9% [Normal Saline] 100 ml Med 04/24/21 12:45 Active IV ASDIRECTED Sodium Chloride 0.9% [Saline Flush] Med 04/24/21 12:30 Active 10 ml FLUSH ASDIRECTED PRN Peripheral IV Insertion Adult [OM.PC] Stat Oth 04/24/21 12:30 Ordered Medication Orders Sodium Chloride (Normal Saline) 1,000 mls @ 125 mls/hr IV ASDIRECTED FLOYD Last Admin: 04/24/21 12:41 Dose: 125 mls/hr Documented by: MATT Sodium Chloride (Normal Saline) 100 mls @ 60 mls/hr IV ASDIRECTED FLOYD Last Admin: 04/24/21 12:49 Dose: 60 mls/hr Documented by: MATT Sodium Chloride (Sodium Chloride 0.9% 10 Ml Syringe) 10 ml FLUSH ASDIRECTED PRN PRN Reason: Keep Vein Open Last Admin: 04/24/21 12:42 Dose: 10 ml Documented by: MATT Labs: Laboratory Tests 04/24/21 04/24/21 04/24/21 Range/Units 12:41 12:41 12:41 WBC 2.07 L* (4.23-9.07) K/mm3 RBC 4.26 L (4.63-6.08) M/mm3 Hgb 14.5 (13.7-17.5) gm/dl Hct 40.7 (40.1-51.0) % MCV 95.5 H (79.0-92.2) fl MCH 34.0 H (25.7-32.2) pg MCHC 35.6 H (32.2-35.5) g/dl RDW Std Deviation 39.6 (35.1-43.9) fL Plt Count 75 L (163-337) K/mm3 MPV 11.1 (9.4-12.3) fl Neut % (Auto) 52.1 (34.0-67.9) % Lymph % (Auto) 24.2 (21.8-53.1) % Sebastian % (Auto) 20.3 H (5.3-12.2) % Eos % (Auto) 2.9 (0.8-7.0) Baso % (Auto) 0.5 (0.1-1.2) % Neut # (Auto) 1.08 L (1.78-5.38) K/mm3 Lymph # (Auto) 0.50 L (1.32-3.57) K/mm3 Sebastian # (Auto) 0.42 (0.30-0.82) K/mm3 Eos # (Auto) 0.06 (0.04-0.54) K/mm3 Baso # (Auto) 0.01 (0.01-0.08) K/mm3 Manual Slide Review D-Dimer, Quantitative 4.12 H (0.19-0.50) mg/L Sodium 135 L (136-145) mEq/L Potassium 3.7 (3.5-5.1) mEq/L Chloride 96 L (98-107) mEq/L Carbon Dioxide 31 (21-32) mEq/L Anion Gap 11.7 (5-15) BUN 6 L (7-18) mg/dL Creatinine 0.7 (0.7-1.3) mg/dL Est Cr Clr Drug Dosing 73.08 mL/min Estimated GFR (MDRD) > 60 (>60) mL/min BUN/Creatinine Ratio 8.6 L (14-18) Glucose 101 H (70-99) mg/dL Calcium 9.2 (8.5-10.1) mg/dL Total Bilirubin 1.0 (0.2-1.0) mg/dL AST 50 H (15-37) U/L ALT 57 (16-63) U/L Alkaline Phosphatase 122 H (46-116) U/L Troponin I < 0.017 (0.00-0.056) ng/mL C-Reactive Protein <0.2 (<1.0) mg/dL Total Protein 6.8 (6.4-8.2) g/dl Albumin 4.0 (3.4-5.0) g/dl Globulin 2.8 gm/dL Albumin/Globulin Ratio 1.4 (1-2) Meds: Medications Generic Name Dose Route Start Last Admin Trade Name Karlie PRN Reason Stop Dose Admin Sodium Chloride 1,000 mls @ 125 mls/hr 04/24/21 12:30 04/24/21 12:41 Normal Saline IV 125 mls/hr ASDIRECTED FLOYD Administration Sodium Chloride 100 mls @ 60 mls/hr 04/24/21 12:45 04/24/21 12:49 Normal Saline IV 60 mls/hr ASDIRECTED FLOYD Administration Sodium Chloride 10 ml 04/24/21 12:30 04/24/21 12:42 Sodium Chloride 0.9% 10 Ml Syringe FLUSH 10 ml ASDIRECTED PRN Administration Keep Vein Open Discontinued Medications Generic Name Dose Route Start Last Admin Trade Name Karlie PRN Reason Stop Dose Admin Iopamidol 100 ml 04/24/21 12:36 04/24/21 12:48 Iopamidol 755 Mg/Ml 100 Ml Bottle IVPUSH 04/24/21 12:37 100 ml ONETIME ONE Administration Sodium Chloride 10 ml 04/24/21 12:36 04/24/21 12:41 Sodium Chloride 0.9% 10 Ml Syringe FLUSH 04/24/21 12:37 10 ml ONETIME ONE Administration Sodium Chloride 10 ml 04/24/21 12:50 04/24/21 12:51 Sodium Chloride 0.9% 10 Ml Syringe FLUSH 04/24/21 12:51 10 ml ONETIME ONE Administration - Re-Assessments/Exams Free Text/Narrative Re-Assessment/Exam: 04/24/21 14:27 I ordered an IV saline lock, EKG, CT angio of his chest, CT of his cervical spine, and labs. He did not want anything for pain now. His EKG shows a NSR with no acute changes. The CT of his cervical spine shows mild degenerative change within the cervical spine. Vascular calcification is seen. Other findings are believed to be incidental. Nothing acute is otherwise seen. 04/24/21 14:30 His WBC was low at 2.07. His Hgb was normal. His platelets were low at 75. His d-dimer was elevated at 4.12. His AST is elevated at 50. His alk phos is elevated at 122. His troponin is negative. His CRP is negative. 04/24/21 14:44 I feel the pain is coming from the compression fractures in his thoracic spine. I will get him on some prednisone for a few days and some more hydrocodone and [facility] 04/24/21 14:45 His and him say he has a history of low platelets and low WBC. I will have [facility]. Departure - Departure Time of Disposition: 14:50 Disposition: Home, Self-Care 01 Condition: Good Clinical Impression: Thrombocytopenia Compression fracture of thoracic spine, non-traumatic Qualifiers: Encounter type: initial encounter Thoracic vertebra fracture level: T4 Qualified Code(s): M48.54XA - Collapsed vertebra, not elsewhere classified, thoracic region, initial encounter for fracture Leukopenia Qualifiers: Leukopenia type: other Qualified Code(s): D72.818 - Other decreased white blood cell count - Discharge Information *PRESCRIPTION DRUG MONITORING PROGRAM REVIEWED*: Not Applicable *COPY OF PRESCRIPTION DRUG MONITORING REPORT IN PATIENT ERICK: Not Applicable Prescriptions: Hydrocodone/Acetaminophen [Hydrocodone-Acetamin 5-325 mg] 1 - 2 each PO Q6H PRN #15 tablet PRN Reason: Pain predniSONE [Prednisone] 40 mg PO DAILY #10 tablet Referrals: Lazara Can MD [Primary Care Provider] - 1 Week Forms: ED Department Discharge Additional Instructions: Take the prednisone daily for 5 days. Take tylenol as needed for pain. If that does not help, try the hydrocodone. Try to follow [facility]. Please return if you are worse. Sepsis Event Note (ED) - Evaluation Sepsis Screening Result: No Definite Risk - Focused Exam Vital Signs: Vital Signs Temp Pulse Resp BP Pulse Ox 04/24/21 12:05 97 F 66 16 214/104 H 97 - My Orders Last 24 Hours: My Active Orders 04/24/21 12:30 Sodium Chloride 0.9% [Normal Saline] 1,000 ml IV ASDIRECTED Sodium Chloride 0.9% [Saline Flush] 10 ml FLUSH ASDIRECTED PRN Peripheral IV Insertion Adult [OM.PC] Stat 04/24/21 12:31 Cardiac Monitoring [RC] . DIRECTED EKG Documentation Completion [RC] STAT Peripheral IV Care [RC] . DIRECTED Ang Chest [CT] Stat 04/24/21 12:45 Sodium Chloride 0.9% [Normal Saline] 100 ml IV ASDIRECTED 04/24/21 13:36 CORONAVIRUS COVID-19 LUCRETIA [MOLEC] Stat - Assessment/Plan Last 24 Hours: My Active Orders 04/24/21 12:30 Sodium Chloride 0.9% [Normal Saline] 1,000 ml IV ASDIRECTED Sodium Chloride 0.9% [Saline Flush] 10 ml FLUSH ASDIRECTED PRN Peripheral IV Insertion Adult [OM.PC] Stat 04/24/21 12:31 Cardiac Monitoring [RC] . DIRECTED EKG Documentation Completion [RC] STAT Peripheral IV Care [RC] . DIRECTED Ang Chest [CT] Stat 04/24/21 12:45 Sodium Chloride 0.9% [Normal Saline] 100 ml IV ASDIRECTED 04/24/21 13:36 CORONAVIRUS COVID-19 LUCRETIA [MOLEC] Stat
--- NOTE | 2021-04-24 15:13 | CT ---
CT chest Technique: Multiple axial sections through the chest were obtained. Intravenous contrast was utilized. Study has been performed as a pulmonary angiogram protocol. Comparison: Prior chest x-ray dated 04/16/21. Findings: Thoracic aorta shows atherosclerotic calcification. Ascending aorta is slightly ectatic with AP dimension of 3.3 cm. Pulmonary arteries are well opacified. No filling defects are seen to indicate pulmonary embolism. Mediastinum shows no adenopathy. No pericardial thickening is seen. Visualized upper abdominal structures show nothing acute. Lung window settings show diffuse emphysematous change. No acute parenchymal change is seen. Vascular stent is noted along the right side of the chest. Bone window settings were reviewed and show multiple old right-sided rib fractures which appear healed. Numerous compression deformities are seen within the mid and upper thoracic spine as well as lesser compression deformities within the lower thoracic spine. Impression: 1. No findings of pulmonary embolism. 2. Diffuse emphysematous change. 3. Prior vascular stent. Diffuse compression deformities throughout the spine. Old right-sided rib fractures which appear healed. Diagnostic code #3 MTDD
== END 2021-04-24 15:15 | disposition home or self-care (01) ==
LOC: JD.ED 11:51
DX: M48.54XA Collapsed vertebra, not elsewhere classified, thoracic region, initial encounter for fracture (principal); D69.6 Thrombocytopenia, unspecified; D72.818 Other decreased white blood cell count; I10 Essential (primary) hypertension; Z72.0 Tobacco use; Z88.4 Allergy status to anesthetic agent; Z79.899 Other long term (current) drug therapy
CPT/HCPCS: 36415; 71275; 71275-26; 72125; 72125-26; 80053; 84484; 85025; 85379; 86140; 93005; 93010; 99284; 99284-25; J7030; Q9967

== ENCOUNTER 2022-05-31 20:10 | Inpatient (IN) | payer OTHER ==
[2022-05-31] MEDS ORDERED: Iopamidol 612 MG/ML 100 ML Bottle IVPUSH ONE (21:07)
[2022-05-31] MEDS ORDERED: Sodium Chloride 0.9% 100 ML IV SCH (21:15)
[2022-05-31 21:40] LABS: ESTIMATED GFR 99 mL/min (>60)
[2022-05-31] MEDS ORDERED: Sodium Chloride 0.9% 1,000 ML IV ONE (22:05)
[2022-06-01] MEDS ORDERED: HYDROmorphone 0.5 MG/0.5 ML Syringe IVPUSH ONE (00:51)
[2022-06-01] MEDS ORDERED: Sodium Chloride 0.9% 1,000 ML IV ONE (00:51)
[2022-06-01 04:49] LABS: ESTIMATED GFR 99 mL/min (>60)
[2022-06-01] MEDS ORDERED: Acetaminophen/HYDROcodone 325-5 MG Tab PO PRN (09:42)
[2022-06-01] MEDS ORDERED: Acetaminophen 325 MG Tab PO PRN (09:42)
[2022-06-01] MEDS ORDERED: SODIUM CHLORIDE IV SCH ×2 (09:45)
[2022-06-01] MEDS ORDERED: POTASSIUM CHLORIDE IV SCH ×2 (09:45)
[2022-06-01] MEDS ORDERED: DEXTROSE IV SCH ×2 (09:45)
[2022-06-01] MEDS ORDERED: Orphenadrine 100 MG Tab.ER PO PRN (09:51)
[2022-06-01] MEDS ORDERED: Gabapentin 100 MG Cap PO PRN (09:51)
[2022-06-01] MEDS: Lisinopril 20 MG Tab PO SCH (10:33)
[2022-06-01] MEDS: Nicotine 14 MG/24 Hr Patch TRDERM SCH (10:34)
[2022-06-01] MEDS: cefTRIAXone 1 GM in Sodium Chloride 0.9% 100 ML IV SCH (10:35)
[2022-06-01] MEDS: D5 1/2 NS w/ 20 mEq/L KCl 1,000 ML IV SCH (10:35)
[2022-06-01] MEDS ORDERED: Pantoprazole 40 MG Vial IVPUSH ONE (11:19)
[2022-06-01] MEDS: Doxycycline Monohydrate 100 MG Cap PO SCH (20:37)
[2022-06-01] MEDS: Thiamine 100 MG Tab PO SCH (20:38)
[2022-06-01] MEDS: guaiFENesin/Dextromethorphan 100-10 MG/5 ML Soln 5 ML Cup PO PRN (22:02)
[2022-06-02] MEDS: D5 1/2 NS w/ 20 mEq/L KCl 1,000 ML IV SCH (01:29)
[2022-06-02 06:37] LABS: ESTIMATED GFR 99 mL/min (>60)
[2022-06-02 07:57] LABS: HEMOGLOBIN A1C 4.6 %
[2022-06-02] MEDS: Doxycycline Monohydrate 100 MG Cap PO SCH ×2 (08:55→20:59)
[2022-06-02] MEDS: Lisinopril 20 MG Tab PO SCH (08:55)
[2022-06-02] MEDS: Nicotine 14 MG/24 Hr Patch TRDERM SCH (08:56)
[2022-06-02] MEDS: cefTRIAXone 1 GM in Sodium Chloride 0.9% 100 ML IV SCH (10:11)
[2022-06-02] MEDS: Enoxaparin 40 MG/0.4 ML Syringe SUBCUT SCH (11:55)
[2022-06-02] MEDS: guaiFENesin/Dextromethorphan 100-10 MG/5 ML Soln 5 ML Cup PO PRN (16:17)
[2022-06-02] MEDS: Benzocaine/Cetylpyridinium/Menthol Lozenge MUCMEM PRN ×2 (18:58→21:04)
[2022-06-02] MEDS: Thiamine 100 MG Tab PO SCH (20:58)
[2022-06-02] MEDS: Metoprolol Succinate 25 MG Tab.ER PO SCH (20:59)
[2022-06-03 06:17] LABS: ESTIMATED GFR 99 mL/min (>60)
[2022-06-03] MEDS: Cholecalciferol (Vitamin D3) 5,000 UNIT Cap PO SCH (09:13)
[2022-06-03] MEDS: Nicotine 14 MG/24 Hr Patch TRDERM SCH (09:14)
[2022-06-03] MEDS: Doxycycline Monohydrate 100 MG Cap PO SCH ×2 (09:14→21:04)
[2022-06-03] MEDS: cefTRIAXone 1 GM in Sodium Chloride 0.9% 100 ML IV SCH ×2 (09:18→09:36)
[2022-06-03] MEDS: Lisinopril 20 MG Tab PO SCH (09:18)
[2022-06-03] MEDS: Enoxaparin 40 MG/0.4 ML Syringe SUBCUT SCH (09:24)
[2022-06-03] MEDS ORDERED: Magnesium Sulfate/Water 4 GM in Premix Bag 1 BAG IV ONE (10:04)
[2022-06-03] MEDS: Metoprolol Succinate 25 MG Tab.ER PO SCH (21:03)
[2022-06-03] MEDS: Thiamine 100 MG Tab PO SCH (21:03)
[2022-06-03] MEDS: guaiFENesin/Dextromethorphan 100-10 MG/5 ML Soln 5 ML Cup PO PRN (21:05)
[2022-06-04 06:24] LABS: ESTIMATED GFR 99 mL/min (>60)
[2022-06-04] MEDS: Cholecalciferol (Vitamin D3) 5,000 UNIT Cap PO SCH (08:18)
[2022-06-04] MEDS: Lisinopril 20 MG Tab PO SCH (08:18)
[2022-06-04] MEDS: Doxycycline Monohydrate 100 MG Cap PO SCH (08:18)
[2022-06-04] MEDS: Nicotine 14 MG/24 Hr Patch TRDERM SCH (08:19)
[2022-06-04] MEDS: Benzocaine/Cetylpyridinium/Menthol Lozenge MUCMEM PRN (15:03)
== END 2022-06-04 15:50 | disposition home or self-care (01) | DRG 896 ==
LOC: JD.ED 20:10 → JD.MS 06-01 06:47
PROVIDERS: ADMIT Pediatrics; ATTEND Pediatrics
DX: F10.229 Alcohol dependence with intoxication, unspecified (principal); F10.20 Alcohol dependence, uncomplicated; J18.9 Pneumonia, unspecified organism; I95.1 Orthostatic hypotension; W19.XXXA Unspecified fall, initial encounter; E87.1 Hypo-osmolality and hyponatremia; M48.54XA Collapsed vertebra, not elsewhere classified, thoracic region, initial encounter for fracture; I47.2 Ventricular tachycardia; Z88.4 Allergy status to anesthetic agent; J44.0 Chronic obstructive pulmonary disease with (acute) lower respiratory infection; R56.9 Unspecified convulsions; E83.42 Hypomagnesemia; D69.6 Thrombocytopenia, unspecified; F17.210 Nicotine dependence, cigarettes, uncomplicated; I48.91 Unspecified atrial fibrillation; I10 Essential (primary) hypertension; R09.02 Hypoxemia; Z20.822 Contact with and (suspected) exposure to COVID-19; Z79.899 Other long term (current) drug therapy; Z79.01 Long term (current) use of anticoagulants; Z95.1 Presence of aortocoronary bypass graft; Z88.8 Allergy status to other drugs, medicaments and biological substances; Z86.73 Personal history of transient ischemic attack (TIA), and cerebral infarction without residual deficits; Z90.89 Acquired absence of other organs; Z98.890 Other specified postprocedural states; W18.30XA Fall on same level, unspecified, initial encounter; K29.00 Acute gastritis without bleeding; Y92.009 Unspecified place in unspecified non-institutional (private) residence as the place of occurrence of the external cause
CPT/HCPCS: 36415 ×2; 70450; 71260; 71275; 72125; 73130; 74177; 80048; 80053; 80306; 80307; 81001; 82150; 83690; 83735; 84300; 84443; 84484; 85025; 85379; 85610; 85730; 87635; 93005; 96361 ×2; 96374; 99285; J1170; J7030 ×2; Q9967; 70551; 70551-26; 80061; 82140; 82306; 82607; 82947; 83036; 83930; 83935; 86140; 93880; 93880-26; 93970; 93970-26; 97110-GO; 97110-GP; 97116-GP; 97162-GP; 97166-GO; 97530-GP; 99233; 99239; A9270-GY; C9113; J0696; J3475; J3480; U0002